=== PATIENT | female | born 1945 | race Caucasian/White ===

== ENCOUNTER 2022-12-13 18:11 | Inpatient (IN) | payer MEDICARE ==
[2022-12-13 19:28] LABS: #Basophils 0.1 10x3/uL (0.0-0.2); #Eosinphils 0.6 10x3/uL (0.0-0.5); #Neutrophils 7.5 10x3/uL (1.5-8.4); %Eosinophils 4.8 % (0.0-6.0); %Lymphocytes 24.5 % (18.0-47.0); %Monocytes 7.9 % (0.0-10.0); %Neutrophils 61.3 % (40.0-75.0); Hemoglobin 12.6 g/dL (12.0-15.5); Mean Corpuscular HGB CONC 32.8 g/dL (32.0-36.0); Mean Corpuscular Hemoglobin 30.9 pg (27.0-33.0); Mean Corpuscular Volume 94.1 fl (81.6-98.3); Mean Platelet Volume 9.3 fl (7.4-10.4); Platelet Count 342 10x3/uL (150-450); RBC Distribution Width 13.9 % (11.5-14.5); Red Blood Cell (RBC) Count 4.08 10x6/uL (3.90-5.03); White Blood Cell (WBC) Count 12.1 10x3/uL (3.5-10.5)
[2022-12-13 19:30] LABS: ALT (SGPT) 19 U/L (8-55); AST (SGOT) 25 U/L (5-34); Albumin 3.7 g/dL (3.4-4.8); Alkaline Phosphatase 106 U/L (40-110); Anion Gap 16 mmol/L (10-20); BUN (Urea Nitrogen) 26 mg/dL (9.8-20.1); Bilirubin, Total 0.2 mg/dL (0.2-1.2); Calc. Creatinine Clearance 0 mL/min (70-130); Calcium 9.2 mg/dL (7.8-10.44); Carbon Dioxide 22 mmol/L (23-31); Chloride 104 mmol/L (98-107); Estimated GFR 57; Globulin 2.7 g/dL (2.4-3.5); Glucose 96 mg/dL (83-110); Potassium 4.7 mmol/L (3.5-5.1); Protein, Total 6.4 g/dL (5.8-8.1); Sodium 137 mmol/L (136-145)
[2022-12-13] MEDS ORDERED: Acetaminophen 325 MG TAB PO PRN (21:07)
[2022-12-13 21:33] LABS: Magnesium 1.9 mg/dL (1.6-2.6)
[2022-12-14] MEDS: Lisinopril 20 MG TAB PO SCH (08:34)
[2022-12-14] MEDS: DULoxetine 30 MG CAP PO SCH (08:34)
[2022-12-14] MEDS: Levothyroxine Sodium 75 MCG TAB PO SCH (08:34)
[2022-12-14] MEDS: Hydrochlorothiazide 25 MG TAB PO SCH (08:34)
[2022-12-14] MEDS: Meloxicam 7.5 MG TAB PO SCH (08:58)
[2022-12-14 10:08] LABS: Bilirubin Neg (Negative); Blood, Urine Negative (Negative); Clarity Clear (Clear); Glucose, Urine (Dipstick) Normal (Negative); Ketone, Urine Negative (Negative); Leukocyte Negative (Negative); Nitrite Negative (Negative); Protein, Urine (Dipstick) Negative (Neg-Trace); Urobilinogen Normal mg/dL (Less than 2)
[2022-12-14 10:25] LABS: Bacteria/HPF Rare-Few HPF (None Seen); CAUTI Indications for Culture Dysuria,urgency,freq; RBC/HPF None Seen HPF (0-3); Squamous Epithelial None Seen HPF (0-3); WBC/HPF 0-3 HPF (0-3)
[2022-12-14 10:26] LABS: Urine Culture Reflex No No
[2022-12-14] MEDS: cefTRIAXone\\ROCEPHIN 1 GM in Sodium Chloride 0.9% 100 ML IVPB SCH (10:26)
[2022-12-14] MEDS: Latanoprost 0.005% Ophth Soln 2.5 ml Bottle EA EYE SCH (21:00)
[2022-12-15 05:03] LABS: #Basophils 0.1 10x3/uL (0.0-0.2); #Eosinphils 0.6 10x3/uL (0.0-0.5); #Monocytes 1.1 10x3/uL (0.0-1.1); %Basophils 0.8 % (0.0-2.0); %Eosinophils 5.6 % (0.0-6.0); %Lymphocytes 22.3 % (18.0-47.0); %Monocytes 9.8 % (0.0-10.0); %Neutrophils 61.1 % (40.0-75.0); Hemoglobin 12.2 g/dL (12.0-15.5); Mean Corpuscular HGB CONC 32.2 g/dL (32.0-36.0); Mean Corpuscular Hemoglobin 30.6 pg (27.0-33.0); Platelet Count 281 10x3/uL (150-450); RBC Distribution Width 13.8 % (11.5-14.5); Red Blood Cell (RBC) Count 3.99 10x6/uL (3.90-5.03); White Blood Cell (WBC) Count 11.5 10x3/uL (3.5-10.5)
[2022-12-15 05:15] LABS: Anion Gap 15 mmol/L (10-20); BUN (Urea Nitrogen) 26 mg/dL (9.8-20.1); Calc. Creatinine Clearance 57 mL/min (70-130); Calcium 9.3 mg/dL (7.8-10.44); Carbon Dioxide 22 mmol/L (23-31); Chloride 106 mmol/L (98-107); Estimated GFR 54; Glucose 94 mg/dL (83-110); Potassium 4.3 mmol/L (3.5-5.1); Sodium 139 mmol/L (136-145)
[2022-12-15] MEDS: Levothyroxine Sodium 75 MCG TAB PO SCH (09:08)
[2022-12-15] MEDS: DULoxetine 30 MG CAP PO SCH (09:10)
[2022-12-15] MEDS: Lisinopril 20 MG TAB PO SCH (09:10)
[2022-12-15] MEDS: Meloxicam 7.5 MG TAB PO SCH (09:11)
[2022-12-15] MEDS: cefTRIAXone\\ROCEPHIN 1 GM in Sodium Chloride 0.9% 100 ML IVPB SCH (09:14)
[2022-12-15] MEDS ORDERED: Polyethylene Glycol 3350 17 GM Packet PO SCH (09:30)
[2022-12-15] MEDS: Senokot S 8.6-50 MG TAB PO SCH (20:46)
[2022-12-15] MEDS: Latanoprost 0.005% Ophth Soln 2.5 ml Bottle EA EYE SCH (20:47)
[2022-12-16] MEDS: traZODone HCl 50 MG TAB PO PRN ×2 (01:12→21:26)
[2022-12-16 04:58] LABS: Hemoglobin 11.7 g/dL (12.0-15.5); Mean Corpuscular Hemoglobin 31.3 pg (27.0-33.0); Mean Corpuscular Volume 94.9 fl (81.6-98.3); Mean Platelet Volume 9.4 fl (7.4-10.4); Platelet Count 274 10x3/uL (150-450); RBC Distribution Width 13.6 % (11.5-14.5); Red Blood Cell (RBC) Count 3.74 10x6/uL (3.90-5.03); White Blood Cell (WBC) Count 10.1 10x3/uL (3.5-10.5)
[2022-12-16 05:25] LABS: ALT (SGPT) 15 U/L (8-55); AST (SGOT) 16 U/L (5-34); Albumin 3.2 g/dL (3.4-4.8); Alkaline Phosphatase 86 U/L (40-110); Anion Gap 12 mmol/L (10-20); BUN (Urea Nitrogen) 29 mg/dL (9.8-20.1); Bilirubin, Total 0.3 mg/dL (0.2-1.2); Calc. Creatinine Clearance 69 mL/min (70-130); Calcium 9.4 mg/dL (7.8-10.44); Carbon Dioxide 22 mmol/L (23-31); Chloride 108 mmol/L (98-107); Estimated GFR 68; Globulin 2.8 g/dL (2.4-3.5); Glucose 102 mg/dL (83-110); Potassium 4.3 mmol/L (3.5-5.1); Sodium 138 mmol/L (136-145)
[2022-12-16] MEDS: cefTRIAXone\\ROCEPHIN 1 GM in Sodium Chloride 0.9% 100 ML IVPB SCH (09:01)
[2022-12-16] MEDS: Levothyroxine Sodium 75 MCG TAB PO SCH (09:07)
[2022-12-16] MEDS: Lisinopril 20 MG TAB PO SCH (09:07)
[2022-12-16] MEDS: DULoxetine 30 MG CAP PO SCH (09:08)
[2022-12-16] MEDS: Meloxicam 7.5 MG TAB PO SCH (09:08)
[2022-12-16] MEDS: Hydrochlorothiazide 25 MG TAB PO SCH (09:08)
[2022-12-16] MEDS: Senokot S 8.6-50 MG TAB PO SCH ×2 (09:09→21:26)
[2022-12-16] MEDS: Latanoprost 0.005% Ophth Soln 2.5 ml Bottle EA EYE SCH (21:26)
[2022-12-17 02:58] VITALS: BMI 31.8
[2022-12-17] MEDS: Levothyroxine Sodium 75 MCG TAB PO SCH (08:53)
[2022-12-17] MEDS: Lisinopril 20 MG TAB PO SCH (08:53)
[2022-12-17] MEDS: DULoxetine 30 MG CAP PO SCH (08:53)
[2022-12-17] MEDS: Meloxicam 7.5 MG TAB PO SCH (08:55)
[2022-12-17] MEDS: Senokot S 8.6-50 MG TAB PO SCH (08:59)
[2022-12-17] MEDS: cefTRIAXone\\ROCEPHIN 1 GM in Sodium Chloride 0.9% 100 ML IVPB SCH (08:59)
[2022-12-17] MEDS ORDERED: Gabapentin 100 MG CAP PO SCH (09:00)
[2022-12-17 11:56] VITALS: TEMP 97.4
[2022-12-17 12:13] VITALS: BP 123/67
== END 2022-12-17 14:39 | DRG 556 ==
LOC: CSHERS 18:11 → CSHTELE 22:14 → OBSVTOIN 22:15
PROVIDERS: ADMIT Family Medicine; ATTEND Family Medicine
DX: R29.898 Other symptoms and signs involving the musculoskeletal system (principal); N39.0 Urinary tract infection, site not specified; Z20.822 Contact with and (suspected) exposure to COVID-19; R20.2 Paresthesia of skin; I10 Essential (primary) hypertension; E03.9 Hypothyroidism, unspecified; R53.81 Other malaise; F41.9 Anxiety disorder, unspecified; R91.1 Solitary pulmonary nodule; Z96.653 Presence of artificial knee joint, bilateral; Z96.643 Presence of artificial hip joint, bilateral; K59.00 Constipation, unspecified; N32.81 Overactive bladder; Z90.89 Acquired absence of other organs; Z90.710 Acquired absence of both cervix and uterus; Z87.891 Personal history of nicotine dependence
CPT/HCPCS: 36415; 36416; 70450; 72131; 80048; 80053; 81001; 83735; 84443; 84484; 85025; 85027; 93005; 93010; J0696; J1650; J3490; U0003; U0005

== ENCOUNTER 2023-01-12 10:20 | Outpatient (CLI) | payer MEDICARE | END 2023-01-12 10:21 | disposition home or self-care (01) | LOC: CSHCP 10:20 | PROVIDERS: ATTEND Family Medicine | DX: R91.8 Other nonspecific abnormal finding of lung field (principal) | CPT/HCPCS: 94010; 94726; 94729 ==